=== PATIENT | female | born 1980 | race Caucasian/White ===

== ENCOUNTER 2016-12-24 09:54 | Emergency (ER) | payer MEDICAID, SELFPAY ==
[~2016-12-24] VITALS: Ht 162.6 cm; Wt 73.9 kg
[2016-12-24 10:02] VITALS: BP 115/82
[2016-12-24] MEDS ORDERED: IBUPROFEN 200 MG TABLET ONE (10:28)
[2016-12-24] MEDS ORDERED: IBUPROFEN 200 MG TABLET PO ONE (10:30)
== END 2016-12-24 11:37 | disposition home or self-care (01) ==
LOC: ED 11:25
DX: S93.491A Sprain of other ligament of right ankle, initial encounter (principal); Z90.49 Acquired absence of other specified parts of digestive tract; X50.1XXA Overexertion from prolonged static or awkward postures, initial encounter; Y93.89 Activity, other specified; Y99.8 Other external cause status; Y92.099 Unspecified place in other non-institutional residence as the place of occurrence of the external cause
CPT/HCPCS: 99284

== ENCOUNTER 2017-03-14 08:21 | Emergency (ER) | payer MEDICAID ==
[~2017-03-14] VITALS: Ht 162.6 cm; Wt 71.5 kg
[2017-03-14 10:03] LABS: CULTURE INDICATED? YES; MICROSCOPIC INDICATED
[2017-03-14 10:17] LABS: CLUE CELLS NONE SEEN (NONE SEEN); WET PREP WBCS FEW (FEW)
[2017-03-14] MEDS ORDERED: CEFTRIAXONE 250 MG IM ONE (10:30)
[2017-03-14] MEDS ORDERED: AZITHROMYCIN 500 MG TABLET PO ONE (10:30)
[2017-03-14] MEDS ORDERED: CEFTRIAXONE 250 MG ONE (10:37)
[2017-03-14] MEDS ORDERED: LIDOCAINE 1%, 10ML ONE (10:38)
[2017-03-14] MEDS ORDERED: AZITHROMYCIN 250 MG TABLET ONE (10:39)
[2017-03-14 10:48] VITALS: BP 118/78
== END 2017-03-14 11:11 | disposition home or self-care (01) ==
LOC: ED 08:52
DX: N39.0 Urinary tract infection, site not specified (principal)
CPT/HCPCS: 81001; 81025; 87086; 87210; 87491; 87591; 87808; 96372; 99284; J0696

== ENCOUNTER 2018-09-04 10:28 | Emergency (ER) | payer MEDICAID ==
[~2018-09-04] VITALS: Ht 162.6 cm; Wt 73.4 kg
--- NOTE | 2018-09-04 11:54 | NUR ---
PT TO ROOM FROM LOBBY.
[2018-09-04 12:01] LABS: BASOPHILS # (AUTO) 0.03 x10^3/uL (0-0.1); BASOPHILS % (AUTO) 0 % (0-1); EOSINOPHILS # (AUTO) 0.03 x10^3/uL (0-0.4); EOSINOPHILS % (AUTO) 0 % (1-7); LYMPHOCYTES # (AUTO) 1.15 x10^3/uL (1-3.4); LYMPHOCYTES % (AUTO) 12 % (22-44); MD NO; MEAN CORPUSCULAR HEMOGLOBIN 31.8 pg (27.0-34.8); MEAN CORPUSCULAR HGB CONC 33.3 g/dL (32.4-35.8); MEAN CORPUSCULAR VOLUME 95.8 fL (80-100); MEAN PLATELET VOLUME 7.9 fL (7.4-10.4); MONOCYTES # (AUTO) 0.41 x10^3/uL (0.2-0.8); MONOCYTES % (AUTO) 4 % (2-9); NEUTROPHILS % (AUTO) 84 % (42-75); PLATELET COUNT 244 x10^3/uL (130-400); RED BLOOD COUNT 4.51 x10^6/uL (3.82-5.3); RED CELL DISTRIBUTION WIDTH 13.4 % (9.6-15.2)
--- NOTE | 2018-09-04 12:03 | NUR ---
URINE COLLECTED/SENT TO LAB. PT GIVEN CALL LIGHT/WITHIN REACH.
[2018-09-04 12:10] LABS: ALBUMIN 4.1 g/dL (3.4-5.0); ANION GAP 4 mmol/L (5-15); CALCIUM 8.8 mg/dL (8.5-10.1); CHLORIDE 108 mmol/L (98-107)
[2018-09-04 12:11] LABS: CREATININE 0.73 mg/dL (0.55-1.02)
[2018-09-04] MEDS ORDERED: IBUPROFEN 800 MG TABLET ONE (12:12)
--- NOTE | 2018-09-04 12:15 | NUR ---
PT MEDICATED PER REQUEST AND VO FROM DR PISANO FOR BACK PAIN.
[2018-09-04] MEDS ORDERED: IBUPROFEN 800 MG TABLET PO ONE (12:30)
[2018-09-04 12:45] LABS: HCG UR SG 1.014 (1.003-1.030); MICROSCOPIC NOT IND
[2018-09-04 12:47] LABS: CULTURE INDICATED? NO
--- NOTE | 2018-09-04 12:54 | NUR ---
ALL RESULTS BACK, PT FOR RECHECK.
[2018-09-04 13:09] VITALS: BP 122/61
== END 2018-09-04 13:26 | disposition home or self-care (01) ==
LOC: ED 12:11
DX: M54.42 Lumbago with sciatica, left side (principal); M46.1 Sacroiliitis, not elsewhere classified; Z90.49 Acquired absence of other specified parts of digestive tract
CPT/HCPCS: 36415; 80048; 81003; 81025; 82040; 85025; 99283

== ENCOUNTER 2020-02-09 14:37 | Emergency (ER) | payer MEDICAID ==
[~2020-02-09] VITALS: Ht 162.6 cm; Wt 73.2 kg
[2020-02-09 15:32] LABS: BASOPHILS % (AUTO) 1 % (0-1); EOSINOPHILS % (AUTO) 1 % (1-7); LYMPHOCYTES % (AUTO) 28 % (22-44); MEAN CORPUSCULAR HEMOGLOBIN 30.9 pg (27.0-34.8); MEAN CORPUSCULAR HGB CONC 33.5 g/dL (32.4-35.8); MEAN PLATELET VOLUME 7.9 fL (7.4-10.4); MONOCYTES % (AUTO) 7 % (2-9); NEUTROPHILS % (AUTO) 64 % (42-75); PLATELET COUNT 289 x10^3/uL (130-400); RED BLOOD COUNT 4.57 x10^6/uL (3.82-5.3); RED CELL DISTRIBUTION WIDTH 13.7 % (9.6-15.2)
[2020-02-09 15:35] LABS: MD NO
--- NOTE | 2020-02-09 15:36 | NUR ---
PT WALKED BACK FROM TRIAGE WITH CHIEF COMPLAINT OF VAGINAL BLEEDING STARTING YESTERDAY. PT DENIES N/V, CP, SOB, OR RECENT TRAUMA.
[2020-02-09 15:41] LABS: ALBUMIN 4.2 g/dL (3.4-5.0); ANION GAP 4 mmol/L (5-15); CALCIUM 9.2 mg/dL (8.5-10.1); CHLORIDE 110 mmol/L (98-107); CREATININE 0.79 mg/dL (0.55-1.02)
--- NOTE | 2020-02-09 15:43 | NUR ---
PT TO US
--- NOTE | 2020-02-09 16:00 | NUR ---
PT RETURNED FROM US. UPRIGHT ON GULISA, JESSICA, VSS. PT DENIES ANY NEEDS AT THIS TIME. CALL LIGHT AND PERSONAL BELONGINGS WITHIN REACH. AT BEDSIDE.
[2020-02-09 16:05] LABS: MICROSCOPIC INDICATED
[2020-02-09 16:12] VITALS: BP 123/73
--- NOTE | 2020-02-09 17:02 | NUR ---
PT LEFT ED PRIOR TO RECEIVING PAPER/PRINTED D/C INSTRUCTIONS. VERBALIZED UNDERSTANDING OF INSTRUCTION WITH ERP AND THIS RN. PT TO D/C DESK WITH STEADY GAIT.
== END 2020-02-09 15:35 | disposition home or self-care (01) ==
LOC: ED 15:34
DX: N92.4 Excessive bleeding in the premenopausal period (principal); Z90.49 Acquired absence of other specified parts of digestive tract
CPT/HCPCS: 36415; 76801; 80048; 81001; 82040; 84702; 85025; 86901; 87077; 87086; 87186; 99284

== ENCOUNTER 2020-08-02 12:57 | Emergency (ER) | payer MEDICAID ==
[~2020-08-02] VITALS: Ht 162.6 cm; Wt 73.2 kg
--- NOTE | 2020-08-02 13:57 | NUR ---
QUALITY CONTROL REPRESENTATIVE: PT TO ROOM FROM LOBBY
[2020-08-02] MEDS ORDERED: LIDOCAINE-MPF 1%, 5ML INFIL ONE (16:00)
[2020-08-02] MEDS ORDERED: LIDOCAINE-MPF 1%, 5ML ONE (16:23)
--- NOTE | 2020-08-02 16:42 | NUR ---
PT RESTING IN ROOM. VS STABLE. NO ACUTE DISTRESS NOTED. WILL CONTINUE TO MONITOR.
--- NOTE | 2020-08-02 16:53 | NUR ---
DR LYNN IN ROOM
[2020-08-02 17:43] VITALS: BP 114/77
== END 2020-08-02 17:47 | disposition home or self-care (01) ==
LOC: ED 14:05
DX: N61.1 Abscess of the breast and nipple (principal); Z90.49 Acquired absence of other specified parts of digestive tract
CPT/HCPCS: 10060; 76642; 87070; 87077; 87186; 87205; 99284